=== PATIENT | male | born 1970 | race African-American/Black ===

== ENCOUNTER → 2019-06-04 | Outpatient (CLI) | payer BC ==
[~2019-06-04] VITALS: Ht 182.9 cm; Wt 71.7 kg
[~2019-06-04] MED LIST: ACETAMINOPHEN325 M1 PO; FLEXERIL PO; NAPROXEN SODIU220 M2 PO
--- NOTE | ~2019-06-04 | HPC ---
[facility] [address] [place] [address] PAIN MANAGEMENT CONSULTATION Name: NEEL MUNGUIA Room #: REG ADRIENNE Barry.#: [id number] Admission: 06/04/19 Attend Phys: Maxx Marie MD Discharge: Date of : 70 Report #: [id number] THIS REPORT FOR: //name// CC: MILLA Marie DATE OF SERVICE: 06/04/2019 CHIEF COMPLAINT: Low back pain, some radiation into right hip and neck pain with radiation into the right arm. HISTORY OF PRESENT ILLNESS: The patient is a pleasant, slender and fit-appearing 48-year-old, who I am seeing today at the request of Dr. Milla Horowitz. Beginning around 04/20, he developed pain that he describes as pain and pressure in his low back radiating into both hips. Around the same time or slightly before that, he began experiencing a tingling sensation in his neck. He describes it as a tingling and burning that radiated into the tips of his fingers. This pain and the back and leg pain seemed to be occurring around the same time. Although he describes both of them, it is clear that the most bothersome for him is the pain in his back. The low back pain radiates into his right leg and is severe when he first gets up out of bed in the morning. 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 He has continued to work and has not missed any works related to his pain. He describes his pain as a continuous, burning, shooting, aching, throbbing, pounding, and on the intensity scale, he rates it as an 8/10. Pain drawing is fairly dramatic, showing a pins and needle sensation consistent with a radiculopathy from the neck into the right arm in a very similar drawing involving the low back radiating a radicular pattern into the right leg involving the L5 and S1 distribution. He describes both pins and needles sensations and burning in his pain drawing. MEDICATIONS: Tylenol, naproxen and cyclobenzaprine. He denies side effects from cyclobenzaprine. ALLERGIES: None. PAST MEDICAL HISTORY: An ACL repair, but otherwise describes himself as healthy. 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 He has grown children. He describes himself as single. Denies use of illicit drugs. He uses alcohol in a social setting once or twice a month. He is a former [facility] [address] [place] [address] PAIN MANAGEMENT CONSULTATION Name: NEEL MUNGUIA Room #: REG [facility] Avery#: [id number] Admission: 06/04/19 Attend Phys: Maxx Marie MD Discharge: Date of : 70 Report #: [id number] smoker, smoking only two cigarettes a day at his peak over 15 years ago. PAST MEDICAL HISTORY: Remarkable for cat scratch fever in 1986. PHYSICAL EXAMINATION: GENERAL: He is a 6 feet tall, 158 pounds, BMI of 21.4. VITAL SIGNS: Blood pressure 115/79, heart rate 84, respirations 14. Moves independently from sitting to standing position. His gait is stable and nonantalgic. CHEST: Clear. CARDIAC: Rhythm is regular. There is no audible murmur. NECK: Restricted in neck extension by pain that causes a radiation through the neck, right shoulder, and some increasing pain into the upper portion of the right arm. Strength is adequate and symmetrical in the upper extremities with no asymmetry. Sensation to light touch is intact. Deep tendon reflexes are normal, 2+ biceps, triceps and brachioradialis. Examination of the low back reveals good alignment. Good flexibility and extension without significant increase in pain. Straight leg raising is only mildly positive. He has pain that radiates into his hips, but there is no discomfort with internal or external rotation. Sacroiliacs are nontender. Sensation, strength, and reflexes were all normal in lower extremities. X-RAYS: None. IMPRESSION: He has both low back pain and neck pain that is described in terms of radicular symptoms. It is a bit odd that both appeared simultaneously. There was no history of injury or trauma. 1. Cervicalgia with intermittent right cervical radiculopathy. Pain worsened with neck extension. 2. Low back pain radiating into the right leg with radicular distribution. 3. X-rays were ordered of his lumbar spine. This is the most troublesome for him and affects him from his mobility standpoint. Pain is generally worse and bothers him most in the morning in the low back. X-rays of the neck may also be warranted in of value. 4. He has an appointment with the neurologist next week. If necessary, we will also get a cervical MRI after reviewing his lumbar. 5. Lumbar epidural steroid injection might be helpful for low back pain with radiculopathy. He is not interested in the shot at this time. He is nervous about needles and apprehensive. I have explained the procedure to him including risks and benefits. I will be happy to provide injection for him if symptoms persist. We will call him after I see the results of the MRI. By: [id number] MD sissy Garcia
[2019-06-04 09:34] VITALS: BP 115/79
--- NOTE | 2019-06-04 09:58 | NUR ---
Pain Clinic Assessment: 1. History of Osteoarthritis: Not Applicable History of Rheumatoid Arthritis: Not Applicable 2. Height: 6 ft. 00 in. 182.9 cm. Weight: 158.0 lb. oz. 71.668 kg. Patient's BMI: 21.4 3. Vital Signs: BP: 115/79 Pulse: 84 Resp: 14 Temp: 02 Sat: 98 ECG Mon: 4. Pain Intensity: 8 5. Fall Risk: Dizziness: Y Needs help standing or walking: N Fallen in the last 3 months: N Fall risk comments: 6. Patient on Blood Thinner: None 7. History of Hypertension: N 8. Opioid Therapy greater than 6 weeks: N Opiate Contract Signed: 9. Risk Assessment Tool Provided: 10. Functional Assessment Tool: 11. Recreational Drug Use: Never Drug Type: Tobacco Use: Former Smoker Tobacco Type: Cigarettes Amount or Packs/day: 2 CIGARETTES How Many Years: 15 Alcohol Use: Yes Frequency: Monthly Quant: 2
== END ==
LOC: PAIN 06:47
DX: M54.5 Low back pain (principal); M54.2 Cervicalgia; Z79.899 Other long term (current) drug therapy; Z88.8 Allergy status to other drugs, medicaments and biological substances

== ENCOUNTER → 2019-08-07 | Outpatient (CLI) | payer BC, OTHER | LOC: RAD 12:59 | DX: M47.812 Spondylosis without myelopathy or radiculopathy, cervical region (principal); M48.02 Spinal stenosis, cervical region; M46.02 Spinal enthesopathy, cervical region ==